=== PATIENT | female | born 1950 | race Caucasian/White ===

== ENCOUNTER → 2016-07-07 | Outpatient (CLI) | payer MEDICARE, OTHER ==
--- NOTE | 2016-07-08 08:20 | Diagnostic Imaging Report ---
Bilateral screening mammogram The current study was also evaluated with a Computer Aided Detection (CAD) system. INDICATION: Screening. No current complaints stated on the questionnaire. COMPARISON: 05/25/15. FINDINGS: The breasts are composed of heterogeneously dense parenchyma which may decrease mammographic sensitivity. Increased prominence of lateral left breast asymmetries are probably related to fibrocystic changes. There is also a central right breast asymmetry seen in the central aspect of the CC projection. IMPRESSION: Focal compression views and ultrasound evaluation for lateral left breast and central right CC projection asymmetry is recommended. ACR BI-RADS Category 0: Incomplete. (Needs additional imaging evaluation). Result letter will be mailed to the patient. Note: At least 10% of breast cancer is not imaged by mammography. Dictated by: Dictated on workstation # [id number]
== END ==
LOC: RAD 10:26
PROVIDERS: ATTEND Family Medicine
DX: Z12.31 Encounter for screening mammogram for malignant neoplasm of breast (principal); N64.89 Other specified disorders of breast
CPT/HCPCS: 77067

== ENCOUNTER → 2016-07-26 | Outpatient (CLI) | payer MEDICARE, OTHER ==
--- NOTE | 2016-07-26 08:49 | Diagnostic Imaging Report ---
Bilateral diagnostic mammogram. INDICATION: Bilateral breast asymmetries. COMPARISON: 07/07/2016. FINDINGS: The current study was also evaluated with a Computer Aided Detection (CAD) system. In the right breast, asymmetry in the central aspect of the right cc projection is evaluated with focal compression evaluation that demonstrate less prominent asymmetry in favor of summation artifact of the parenchyma. Left breast focal asymmetry laterally persists with focal compression view with suggestion of an underlying 1 cm nodule at approximately 7 CM from the nipple 2:30 o'clock position. IMPRESSION: 1. Central right CC projection asymmetry is perhaps summation artifact of parenchyma. 2. Suspected nodule at 2:30 o'clock position 7 CM from the nipple in the left breast. 3. Ultrasound evaluation pending. BI-RADS 0. ACR BI-RADS Category 0: Incomplete. (Needs additional imaging evaluation). Result letter will be mailed to the patient. Note: At least 10% of breast cancer is not imaged by mammography. Dictated by: Dictated on workstation # [id number]
--- NOTE | 2016-07-26 09:31 | Diagnostic Imaging Report ---
EXAMINATION: Bilateral breast ultrasound. INDICATION: Right breast central asymmetry and left breast focal asymmetry in the lateral aspect. FINDINGS: The retroareolar region and 4 quadrants of each breast is scanned with no underlying abnormality noted. IMPRESSION: Negative study. The mammographic findings on the right side are suggestive of summation artifact of parenchyma. On the left side however there is persistent nodule seen on the focal compression views and is indeterminate. Stereotatic biopsy is recommended. BI-RADS 4A. ACR BI-RADS Category 4A: Low suspicion of malignancy. The findings and recommendations were personally discussed with the patient just before this dictation.. Report was faxed to office of Ritesh by ganesh at 9:33 am. Dictated by: Dictated on workstation # [id number]
== END ==
LOC: RAD 08:17
PROVIDERS: ATTEND Family Medicine
DX: N63 Unspecified lump in breast (principal)
CPT/HCPCS: 77066

== ENCOUNTER → 2016-08-09 | Outpatient (CLI) | payer MEDICARE, OTHER ==
[~2016-08-09] VITALS: Ht 162.6 cm; Wt 54.4 kg
[~2016-08-09] MED LIST: CATHETER FLUSH 10 ML SYR IV PRN; HYDROcodone/APAP 10 MG/325 MG (LORTAB) TAB PO NR; LIDOCAINE 1% INJ 20 ML (XYLOCAINE) VIAL INJ ONE; LIDOCAINE/EPI 1%-1:100,000 (XYLOCAINE) 20ML ONE; NS (IVPB) 100 ML ONE; ceFAZolin INJECTION 1,000 MG in NS (IVPB) 50 ML IV ONE
[2016-08-09 13:00] VITALS: BP 134/80
[2016-08-09 14:40] VITALS: BP 110/66
[2016-08-09 15:20] VITALS: BP 116/81
[2016-08-09 15:28] VITALS: BP 118/66
--- NOTE | 2016-08-09 15:37 | Consultation ---
History of Present Illness History of Present Illness Patient Consulted On(mikayla/time) 08/09/16 15:34 Date of Admission History of Present Illness This lady underwent stereotactic left breast biopsy to manage a lump that was demonstrated on mammogram only. Ultrasound was negative for any lesion. I was called by , our interventional radiologist, to see her due to the development of a large hematoma. Allergies and Home Medications Allergies Coded Allergies: No Known Drug Allergies (Unverified , 08/09/16) Past Buxihns-Vkpjcw-Gdjaex Hx Patient Social History Recent Foreign Travel: No Contact w/Someone Who Travel: No Recent Infectious Disease Expo: No Cardiovascular Hx Cardiac Disorders: No Physical Exam-General Problems Physical Exam Vital Signs Vital Sign - Last 12Hours 08/09/16 13:00 Temp 98.0 Pulse 90 Resp 18 B/P (MAP) 134/80 Pulse Ox 97 O2 Delivery Room Air Capillary Refill : General Appearance: no apparent distress HEENT: normal ENT inspection Neck: supple, normal inspection Skin: warm/dry Comments On examination, she was hemodynamically stable. A large hematoma was demonstrated over the left breast. No active bleeding from the incision noticed. The nursing staff had placed rectal pressure for over 30 minutes and therefore a pressure dressing followed by an Luis wrap around the chest wall was applied. I have given her instructions to use ice packs and a prescription for Vicodin. My office staff will call her in 24 hours and she would be seen in follow-up post biopsy follow-up in my office in 48 hours. Assessment/Plan Assessment/Plan Admission Diagnosis/Plan Post breast biopsy hematoma SABAS ESQUIVEL MD August 09, 2016 15:37
--- NOTE | 2016-08-09 17:09 | Diagnostic Imaging Report ---
EXAMINATION: Vacuum-assisted stereotactic breast biopsy , with clip placement, and specimen radiographs. INDICATION: Left breast nodule . CONSENT: Informed consent was obtained from the patient. The risks, benefits, potential complications and alternatives were reviewed and all questions answered to the patient's satisfaction. PROCEDURE: The patient is positioned on the stereotactic procedure table prone. Prior mammograms were reviewed and based on the position of the lateral nodule, the appropriate the approach is selected. Initial stereotactic mammographic views at -15 and +15 degrees where performed and confirmation of localization of the lesion is performed. The localization is performed with the stereotactic software assistance and confirmed visually to match the area of interest. After satisfactory localization with initial stereotactic mammographic images, the biopsy tract approach is selected from lateral to medial with the skin site determined. After sterile preparation and draping, 1% lidocaine was utilized for local anesthesia. After confirming the targeted nodule along the lateral aspect of the left breast, multiple vacuum-assisted stereotactic biopsies, with 8-gauge core needles, were performed. The specimen radiograph demonstrates fragments of nodule. Subsequently, a marking clip was placed at the site of the biopsy. Subsequently CC and lateral views mammogram is performed which demonstrates a large hematoma. The clip is not seen. Repeated manual and machine compression was utilized due to bleeding and surgical evaluation with Dr. Devine was requested. The patient had no systemic hypertensive symptoms and stable vital signs this might be hematoma. She will followup with Dr. Devine in a few days. IMPRESSION: Stereotactic vacuum-assisted left breast biopsy for nodule along the lateral aspect. A marking clip was deployed, however it is not seen on post procedure mammograms and was probably lost with the bleeding. A large hematoma unfortunately at the site of the biopsy formed disc height repeated attempts of controlling the bleeding with the compression. Specimen radiograph demonstrates the fragments of the nodule. Pathology results are pending. BI-RADS 4A. Dictated by: Dictated on workstation # [id number]
== END ==
LOC: RAD 12:33
PROVIDERS: ATTEND Family Medicine
DX: N63 Unspecified lump in breast (principal)
CPT/HCPCS: 19081; 88305

== ENCOUNTER → 2016-10-24 | Outpatient (CLI) | payer MEDICARE, OTHER ==
[2016-10-24 15:55] LABS: BASOPHILS % (AUTO) 0 % (0-10); EOSINOPHILS % (AUTO) 0 % (0-10); LYMPHOCYTES % (AUTO) 19 % (12-44); MEAN CORPUSCULAR HEMOGLOBIN 31 PG (25-34); MEAN CORPUSCULAR HGB CONC 34 G/DL (32-36); MEAN CORPUSCULAR VOLUME 93 FL (80-99); MEAN PLATELET VOLUME 9.6 FL (7.4-10.4); MONOCYTES # (AUTO) 1.3 X 10^3 (0.0-1.0); MONOCYTES % (AUTO) 8 % (0-12); NEUTROPHILS # (AUTO) 11.1 X 10^3 (1.8-7.8); NEUTROPHILS % (AUTO) 72 % (42-75); PLATELET COUNT 229 10^3/uL (130-400); RED BLOOD COUNT 4.06 10^6/uL (4.35-5.85); RED CELL DISTRIBUTION WIDTH 13.4 % (10.0-14.5); WHITE BLOOD COUNT 15.4 10^3/uL (4.3-11.0)
[2016-10-24 16:14] LABS: ALANINE AMINOTRANSFERASE 15 U/L (0-55); ALBUMIN 3.5 GM/DL (3.2-4.5); ANION GAP 7 MMOL/L (5-14); ASPARTATE AMINO TRANSFERASE 17 U/L (5-34); BILIRUBIN,TOTAL 0.3 MG/DL (0.1-1.0); BLOOD UREA NITROGEN 19 MG/DL (7-18); BUN/CREATININE RATIO 22; CALCIUM 8.9 MG/DL (8.5-10.1); CARBON DIOXIDE 25 MMOL/L (21-32); CHLORIDE 105 MMOL/L (98-107); CREATININE SERUM 0.86 MG/DL (0.60-1.30); GFR ESTIMATED > 60; GLUCOSE 102 MG/DL (70-105); POTASSIUM 3.8 MMOL/L (3.6-5.0); SODIUM 137 MMOL/L (135-145); TOTAL PROTEIN 6.5 GM/DL (6.4-8.2); URIC ACID 3.5 MG/DL (2.6-7.2); hs C REACTIVE PROTEIN 0.15 MG/DL (0.00-0.50)
[2016-10-24 18:34] LABS: BAND NEUTROPHILS 23 %; EOSINOPHILS % (MANUAL) 0 %; LYMPHOCYTES % (MANUAL) 1 %; NEUTROPHILS % (MANUAL) 76 %
[2016-10-24 19:11] LABS: ERYTHROCYTE SEDIMENTATION RATE 10 MM/HR (0-30)
== END ==
LOC: LAB 15:36
DX: M19.241 Secondary osteoarthritis, right hand (principal); M19.242 Secondary osteoarthritis, left hand; R60.0 Localized edema
CPT/HCPCS: 36415; 80053; 84550; 85007; 85027; 85652; 86038; 86141; 86430

== ENCOUNTER → 2017-02-22 | Outpatient (CLI) | payer MEDICARE, OTHER ==
--- NOTE | 2017-02-22 10:52 | Diagnostic Imaging Report ---
EXAMINATION: Left breast ultrasound. INDICATION: Followup after biopsy. FINDINGS: There is a hematoma in the left breast centered around the 2 o'clock zone 4 cm from the nipple measuring 3.5 x 1.4 x 2.4 cm. No suspicious mass is identified. The Pathology results are dense fibrous breast tissue with scattered microcalcifications with no malignancy. IMPRESSION: The Pathology results are benign. There is a moderate-sized hematoma remaining at the site of the biopsy. Annual screening mammograms are recommended with the next mammogram due in July 2017. ACR BI-RADS Category 2: Benign findings. Dictated by: Dictated on workstation # [id number]
== END ==
LOC: RAD 08:56
PROVIDERS: ATTEND Family Medicine
DX: N64.89 Other specified disorders of breast (principal); Z98.890 Other specified postprocedural states
CPT/HCPCS: 76642

== ENCOUNTER → 2018-06-15 | Outpatient (CLI) | payer MEDICARE, OTHER ==
--- NOTE | 2018-06-15 10:53 | Diagnostic Imaging Report ---
CLINICAL INDICATION: Patient with neck stiffness and sciatic pain down left hip and leg. EXAM: MRI of the cervical spine performed without IV contrast. Sequences include sagittal T2, sagittal T1, sagittal T2 fat-sat, and axial T2. COMPARISON: None. FINDINGS: Limited visualization of the posterior fossa shows no significant abnormality. Cervical spinal cord has normal cord caliber with no abnormal signal. There is no significant neck soft tissue abnormality. Cervical spine has normal alignment with no acute fracture or dislocation. There are small anterior spurs seen at the C3-C4 and C4-C5 levels. C1-C2: Unremarkable. C2-C3: Unremarkable. C3-C4: Unremarkable. C4-C5: Unremarkable. C5-C6: There is mild ligamentum flavum buckling and minimal sized posterior disc bulge which causes mild central canal narrowing. There is no significant neural foramen narrowing. There is a small anterior disc spur seen. C6-C7: There is mild facet arthropathy and ligamentum flavum buckling. There is minimal sized posterior disc bulge which causes mild central canal narrowing. There is no significant neural foramen narrowing. C7-T1: Unremarkable. IMPRESSION: Mild cervical spine degenerative disc disease with small posterior disc bulges, ligamentum flavum buckling and facet arthropathy involving the C5-C6 and C6-C7 levels. There is mild central canal narrowing and no significant neural foramen narrowing seen at these levels. There is also a small C5-C6 anterior disc spur. Dictated by: Dictated on workstation # [id number]
== END ==
LOC: RAD 10:10
PROVIDERS: ATTEND Nurse Practitioner Family
DX: M50.322 Other cervical disc degeneration at C5-C6 level (principal); M50.222 Other cervical disc displacement at C5-C6 level; M48.02 Spinal stenosis, cervical region; M43.6 Torticollis; M47.812 Spondylosis without myelopathy or radiculopathy, cervical region
CPT/HCPCS: 72141

== ENCOUNTER → 2019-04-25 | Outpatient (CLI) | payer MEDICARE, OTHER ==
--- NOTE | 2019-04-25 12:08 | Diagnostic Imaging Report ---
INDICATION: Routine screening. COMPARISON: Comparison is made with prior mammograms from 06/27/2016 and 05/25/2015. 2-D and 3-D bilateral screening mammography was performed. The current study was also evaluated with a Computer Aided Detection (CAD) system. 3-D tomosynthesis was also performed and reviewed. FINDINGS: Both breasts are heterogeneously dense, limiting the sensitivity of mammography. Right breast is stable. Large density in the left breast, shown by ultrasound and represent a large hematoma has largely resolved since the prior imaging from 08/09/2016. There is some mild residual density in the lateral posterior left breast. This has some mild associated lucency and may represent a small area of fat necrosis. There are benign calcifications. No malignant-appearing microcalcifications are seen. Axillae are unremarkable. IMPRESSION: No mammographic features suspicious for malignancy are identified. ACR BI-RADS Category 2: Benign findings. Result letter will be mailed to the patient. Note: At least 10% of breast cancer is not imaged by mammography. Dictated by: Dictated on workstation # [id number]
== END ==
LOC: RAD 10:42
PROVIDERS: ATTEND Nurse Practitioner Family
DX: Z12.31 Encounter for screening mammogram for malignant neoplasm of breast (principal)
CPT/HCPCS: 77067

== ENCOUNTER → 2019-04-29 | Outpatient (CLI) | payer MEDICARE, OTHER ==
--- NOTE | 2019-04-29 14:40 | Diagnostic Imaging Report ---
PROCEDURE: CT abdomen and pelvis without contrast. TECHNIQUE: Multiple contiguous axial images were obtained through the abdomen and pelvis without the use of intravenous contrast. Auto Exposure Controls were utilized during the CT exam to meet ALARA standards for radiation dose reduction. INDICATION: Kidney stones and hematuria. COMPARISON: No prior studies are available for comparison. FINDINGS: The lung bases are clear. The liver and gallbladder are unremarkable. No biliary duct dilatation is seen. Pancreas and spleen are unremarkable. No adrenal mass is detected. No definite renal calculi or hydronephrosis is detected. No definite ureteral or bladder calculi are seen. Aorta and iliac vessels are calcified but nonaneurysmal. The small and large bowel loops are normal caliber. There is no obstruction. There is no free fluid in the abdomen or pelvis. No inflammatory process is seen. IMPRESSION: Unremarkable noncontrast CT of the abdomen and pelvis. No urinary tract calculi or hydronephrosis is detected. Dictated by: Dictated on workstation # [id number]
== END ==
LOC: RAD 13:20
PROVIDERS: ATTEND Urology
DX: R31.29 Other microscopic hematuria (principal); Z87.442 Personal history of urinary calculi
CPT/HCPCS: 74176

== ENCOUNTER 2019-05-21 14:15 | Outpatient (CLI) | payer MEDICARE, OTHER ==
[~2019-05-21] VITALS: Ht 157.5 cm; Wt 51.8 kg
== END 2019-05-21 15:23 | disposition home or self-care (01) ==
LOC: PREOP 14:15
PROVIDERS: ATTEND Surgery
DX: Z01.818 Encounter for other preprocedural examination (principal)

== ENCOUNTER 2020-07-07 08:30 | Outpatient (CLI) | payer MEDICARE, OTHER ==
[~2020-07-07] VITALS: Ht 157.5 cm; Wt 52.6 kg
== END 2020-07-07 09:37 | disposition home or self-care (01) ==
LOC: PREOP 08:30
PROVIDERS: ATTEND Surgery
DX: Z01.818 Encounter for other preprocedural examination (principal)

== ENCOUNTER 2020-07-13 07:56 | Day surgery (SDC) | payer MEDICARE, OTHER ==
[~2020-07-13] VITALS: Ht 157.5 cm; Wt 52.6 kg
[2020-07-13] VITALS (8 sets, daily range): BP systolic 105–117; BP diastolic 56–78
[~2020-07-13 07:56] MED LIST changes: -CATHETER FLUSH 10 ML SYR IV PRN; -HYDROcodone/APAP 10 MG/325 MG (LORTAB) TAB PO NR; +LACTATED RINGERS 1,000 ML IV ONE; -LIDOCAINE 1% INJ 20 ML (XYLOCAINE) VIAL INJ ONE; -LIDOCAINE/EPI 1%-1:100,000 (XYLOCAINE) 20ML ONE; -NS (IVPB) 100 ML ONE; -ceFAZolin INJECTION 1,000 MG in NS (IVPB) 50 ML IV ONE
[2020-07-13] MEDS ORDERED: LACTATED RINGERS 1,000 ML IV STA (08:06)
--- NOTE | 2020-07-13 08:48 | Progress Note-Pre Operative ---
Pre-Operative Progress Note H&P Reviewed The H&P was reviewed, patient examined and no changes noted. Time Seen by Provider: 08:43 Date H&P Reviewed: Jul 13, 2020 Time H&P Reviewed: 08:44 Pre-Operative Diagnosis: Hx of Polyp ZA CONNOLLY DO Jul 13, 2020 08:48
[2020-07-13] MEDS ORDERED: proPOfol 200 MG/20 ML (DIPRIVAN) VIAL IV ONE (09:25)
--- NOTE | 2020-07-13 09:58 | Endoscopy Discharge Instruct ---
Endo Procedure/Findings Findings 1.: Polyp 2.: Diverticulosis 3.: Internal Hemorrhoids Discharge Instructions - Activity: You might feel a little sleepy until tomorrow. This is due to the medicine you received to relax you. Until tomorrow, you should: NOT drive a car, operate machinery or power tools. NOT drink any alcoholic beverages. NOT make any important decisions or sign importortant papers. Do not return to work until tomorrow, unless otherwise instructed. Resume previous activities tomorrow. Diet: Start by taking liquids. If you tolerate liquids, advance to solid food. 1.: Colonscopy in 5 years Notify Physician - If you experience excessive bleeding, unusual abdominal pain, fever, or chest pain, contact your doctor immediately. ZA CONNOLLY DO Jul 13, 2020 09:58
--- NOTE | 2020-07-13 09:58 | Progress Note-Post Operative ---
Post-Operative Progess Note Surgeon (s)/Lock Maintenance Supervisor (s) Surgeon ZA CONNOLLY DO Lock Maintenance Supervisor: JAVIER Toure Pre-Operative Diagnosis Hx of Polyp Post-Operative Diagnosis Polyp Diverticula Int hemorrhoids retained fecal material Procedure & Operative Findings Date of Procedure 07/13/20 Procedure Performed/Findings Colon with snare Anesthesia Type IV sedation by Anesthesia Estimated Blood Loss Estimated blood loss (mL): scant Specimens/Packing Specimens Removed Asc colon polyp ZA CONNOLLY DO Jul 13, 2020 09:58
--- NOTE | 2020-07-13 12:52 | Anesthesia-General Post-Op ---
MAC Patient Condition Mental Status/LOC: Same as Preop Cardiovascular: Satisfactory Nausea/Vomiting: Absent Respiratory: Satisfactory Pain: Controlled Complications: Absent Post Op Complications Complications None Follow Up Care/Instructions Patient Instructions None needed. Anesthesiology Discharge Order Discharge Order Patient is doing well, no complaints, stable vital signs, no apparent adverse anesthesia problems. No complications reported per nursing. QUANG REYES CRNA Jul 13, 2020 12:51
--- NOTE | 2020-07-13 22:14 | OPERATIVE REPORT ---
DATE OF SERVICE: 07/13/2020 PREOPERATIVE DIAGNOSES: History of colon polyps. POSTOPERATIVE DIAGNOSIS: Colon polyps, diverticula, internal hemorrhoids. PROCEDURE: Colonoscopy with snare polypectomy. SURGEON: Cutris Cardona DO CELL TOWER CLIMBER: Gary Boyle, MS3. ANESTHESIA: IV sedation by the anesthesiologist. SPECIMEN: Ascending colon polyp. BLOOD LOSS: Scant. FLUIDS: Per anesthesia. POSTOPERATIVE CONDITION: Stable. INDICATION FOR PROCEDURE: The patient is a 70-year-old female with history of polyp, needed a workup. FINDINGS: The patient had a little bit of proctitis, but this may have just been some due to the prep. She had a polyp in the ascending colon. She did have some retained fecal material, but able to get most of it off the kamara and she had some internal hemorrhoids. PROCEDURE NOTE: After informed consent was obtained, the patient was brought to the endoscopy suite, placed in bed in left lateral decubitus position. She was administered IV sedation by the anesthesiologist who then monitored her vitals the entire time, heart rate, blood pressure and pulse ox and the scope was inserted. On the way in noted some proctitis, took a picture, pushed up to the ascending colon, I saw a polyp, did snare polypectomy of this and continued to cecum. There is some fecal material here, but able to clear most of it. Took a picture of appendiceal orifice, noted the ileocecal valve and then slowly withdrew the scope insufflating to look circumferentially at the kamara looking at the cecum, up the ascending colon. Again saw some fecal material on the kamara, but mostly clear, did not see anything large to the hepatic flexure, then down the transverse colon, splenic flexure, into the descending colon. We saw some diverticula and then down into the sigmoid and finally into the rectum, saw some internal hemorrhoids as we were pulling out, took a picture and then removed the scope. The patient tolerated the procedure. She was recovered in endoscopy suite. Job ID: [id number] DocumentID: [id number] Dictated Date: 07/13/2020 15:47:11 Pharmacy Resident Date: 07/13/2020 22:13:07 Dictated By: CURTIS CARDONA DO
== END 2020-07-13 10:40 | disposition home or self-care (01) ==
LOC: ENDO 07:56
PROVIDERS: ATTEND Surgery
DX: D12.2 Benign neoplasm of ascending colon (principal); K57.30 Diverticulosis of large intestine without perforation or abscess without bleeding; K64.8 Other hemorrhoids; M19.90 Unspecified osteoarthritis, unspecified site; Z79.899 Other long term (current) drug therapy; Z87.891 Personal history of nicotine dependence

== ENCOUNTER → 2022-06-15 | Outpatient (CLI) | payer MEDICARE, OTHER ==
--- NOTE | 2022-06-15 08:30 | Diagnostic Imaging Report ---
PROCEDURE: CT abdomen without contrast. TECHNIQUE: Multiple contiguous axial images were obtained through the abdomen without the use of intravenous contrast. Auto Exposure Controls were utilized during the CT exam to meet ALARA standards for radiation dose reduction. INDICATION: Abdominal pain COMPARISON: 04/29/2019 Subcentimeter lucency in the dome of the liver is again noted and may represent cysts. Otherwise no focal hepatic, gallbladder, pancreatic, adrenal gland or splenic abnormality identified. There is a small hiatal hernia. Kidneys are unremarkable without evidence of stone or hydronephrosis. There is mild aortic atherosclerotic calcification. No focal inflammation or organized fluid collection is detected. IMPRESSION: No acute abnormality. Dictated by: Dictated on workstation # [id number]
== END ==
LOC: RAD 07:45
PROVIDERS: ATTEND Nurse Practitioner Family
DX: Z76.0 Encounter for issue of repeat prescription (principal); M47.22 Other spondylosis with radiculopathy, cervical region; F32.89 Other specified depressive episodes; L57.0 Actinic keratosis; M47.812 Spondylosis without myelopathy or radiculopathy, cervical region; R10.12 Left upper quadrant pain; R10.83 Colic; R63.0 Anorexia
CPT/HCPCS: 74150

== ENCOUNTER → 2022-06-29 | Outpatient (CLI) | payer MEDICARE, OTHER ==
[~2022-06-29] MED LIST changes: +HOLD METFORMIN - RECEIVED CONTRAST 20 ML VIAL IV SCH; +IOHEXOL 350 MG/ML 100 ML (OMNIPAQUE 350) VIAL IV ONE; -LACTATED RINGERS 1,000 ML IV ONE; +NS 100 ML (IVPB) BAG IV ONE
--- NOTE | 2022-06-29 11:42 | Diagnostic Imaging Report ---
PROCEDURE: CT abdomen and pelvis with contrast. TECHNIQUE: Multiple contiguous axial images were obtained through the abdomen and pelvis after administration of intravenous contrast. Auto Exposure Controls were utilized during the CT exam to meet ALARA standards for radiation dose reduction. All CT scans use one or more of the following dose optimizing techniques: automated exposure control, MA and/or KvP adjustment based on patient size and exam type or iterative reconstruction. INDICATION: Mid abdominal pain. Comparison is made to prior CT from 06/15/2022. The lung bases are clear. Small low-attenuation lesion dome right lobe of liver is again noted too small to characterize. No other liver lesions are identified. Gallbladder is unremarkable. There is no biliary ductal dilatation. Pancreas and spleen are unremarkable. No adrenal mass is identified. Kidneys are unremarkable. Aorta is nonaneurysmal. Bowel gas pattern is unremarkable. There is no evidence of obstruction. There is moderate stool load in the right colon. There is no ascites. No inflammatory changes are seen. The bladder and uterus are unremarkable. The bony structures are nonacute. IMPRESSION: Moderate stool throughout the colon. Study is otherwise unremarkable. No acute feature is detected. Dictated by: Dictated on workstation # [id number]
== END ==
LOC: RAD 07:45
PROVIDERS: ATTEND Family Medicine
DX: R10.12 Left upper quadrant pain (principal)
CPT/HCPCS: 74177

== ENCOUNTER → 2022-07-27 | Outpatient (CLI) | payer MEDICARE, OTHER | END | disposition home or self-care (01) | LOC: PREOP 05:35 | PROVIDERS: ATTEND Surgery | DX: Z01.818 Encounter for other preprocedural examination (principal) ==

== ENCOUNTER 2022-08-09 13:58 | Day surgery (SDC) | payer MEDICARE, OTHER ==
[~2022-08-09] VITALS: Ht 157.5 cm; Wt 60.3 kg
[2022-08-09 08:06] VITALS: BP 133/71
[2022-08-09 09:25] VITALS: BP 103/59
[2022-08-09 09:30] VITALS: BP 91/55
[2022-08-09 09:35] VITALS: BP 99/55
[2022-08-09 10:25] VITALS: BP 99/55
[2022-08-09] MEDS ORDERED: HURRICAINE EXT TUBE (BENZOCAINE) ONE (14:23)
[2022-08-09] MEDS ORDERED: LACTATED RINGERS 1,000 ML IV ONE (14:23)
--- NOTE | 2022-08-09 14:45 | Anesthesia-General Post-Op ---
MAC Patient Condition Mental Status/LOC: Same as Preop Cardiovascular: Satisfactory Nausea/Vomiting: Absent Respiratory: Satisfactory Pain: Controlled Complications: Absent Post Op Complications Complications None Follow Up Care/Instructions Patient Instructions None needed. Anesthesiology Discharge Order Discharge Order Patient is doing well, no complaints, stable vital signs, no apparent adverse anesthesia problems. No complications reported per nursing. SHARDA CARMONA CRNA August 09, 2022 14:45
--- NOTE | 2022-08-09 15:18 | OPERATIVE REPORT ---
DATE OF SERVICE: 08/09/2022 PREOPERATIVE DIAGNOSIS: Left-sided abdominal pain. POSTOPERATIVE DIAGNOSES: Transverse colon polyps x2. SURGEON: Courtney Christopher DO ANESTHESIA: Per HEALTH PLAN ADVISOR. COMPLICATIONS: None. PROCEDURE: Colonoscopy with hot biopsy polypectomy x2. INDICATIONS: The patient is a 72-year-old female with left-sided abdominal pain. She understands risks and benefits of procedure and wished to proceed. Consent was signed in chart. DESCRIPTION OF PROCEDURE: The patient was taken to endoscopy suite, placed in left lateral recumbent position. Timeout was performed. Digital rectal exam was performed. No palpable polyps, masses or ulcerations. Scope was inserted in the rectum, advanced all the way to the cecum with minimal difficulty. Prep was adequate. Scope was slowly retracted back. No polyps, masses or ulcerations in the cecum. The ascending colon, transverse colon, 2 polyps were present, which hot biopsy polypectomy was performed. Scope was then continuously retracted back. No polyps, masses or ulcerations in the transverse, descending and sigmoid colon. Once in the rectum, scope was retroflexed noting no other pathology. Scope was returned to its normal position, slowly withdrawn until completely removed. The patient tolerated the procedure well, no complications, taken to recovery room in stable condition. RECOMMENDATIONS: The patient will repeat colonoscopy in 5 years if benefits outweigh the risk. She will follow up in 2 weeks to discuss pathology results. Depending on symptoms at this time depends on further management. Job ID: [id number] DocumentID: [id number] Dictated Date: 08/09/2022 09:23:22 Coding Specialist Home Health Date: 08/09/2022 15:16:00 Dictated By: COURTNEY CHRISTOPHER DO
[2022-08-10] MEDS ORDERED: LACTATED RINGERS 1,000 ML IV STA (13:30)
== END 2022-08-10 10:25 | disposition home or self-care (01) ==
LOC: ENDO 13:58
PROVIDERS: ATTEND Surgery
DX: D12.3 Benign neoplasm of transverse colon (principal); Z28.310 Unvaccinated for COVID-19